=== PATIENT | female | born 1975 | race Caucasian/White ===

== ENCOUNTER 2016-10-22 22:00 | Inpatient (IN) | payer OTHER ==
[~2016-10-22] VITALS: Ht 162.6 cm; Wt 58.5 kg
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
--- NOTE | ~2016-10-22 | PN ---
Unit #: [id number] #: [id number] Patient: PARTH EL [id number] [facility] [address] [place] [address] [id number] MR#: [id number] NAME: PARTH EL ROOM: P252 Age: 41 Sex: F Admission Date: 10/23/2016 : 1975 Attending Physician: Jeremy Davis M.D. Admitting Physician: Jeremy Davis M.D. Primary Care Physician: Primary Care Physician Sonia CORTEZ PROGRESS NOTES DATE OF SERVICE 10/24/2016 DISCUSSION Ms. Silva is a 41-year-old female seen on 10/24/2016. Patient interviewed, chart reviewed, I obtained information from nursing staff. Patient's affect is brighter. Patient reports feeling better, reports that she will not go back to her and would like to go to a different place. Patient's UA showed leukocyte esterase positive, WBC bacteria. Patient reported that she has a history of UTI, has one kidney. COMPLETE REVIEW OF SYSTEMS Unremarkable. MENTAL STATUS EXAMINATION GENERAL APPEARANCE: Patient dressed casually. ATTENTION SPAN AND CONCENTRATION: Fair. Oriented in time, place and person. MOOD AND AFFECT: Sad, dysphoric. SPEECH: Monotone. THOUGHT PROCESS: [place]. Patient denied any thoughts of harming self or others. RECENT AND REMOTE MEMORY: Poor. INSIGHT AND JUDGMENT: Poor. DIAGNOSIS Major depressive disorder, recurrent, severe ASSESSMENT/PLAN Advised to continue with current medication with the plan to consider discharge this week, and also ordered medical consultation for treatment for UTI. Dictated by... Emerita Swann/ritesh TD: 10/25/2016 04:12 Unit #: [id number] #: [id number] Patient: PARTH EL JOB #: [id number] [facility] PROGRESS NOTES Page 1 of 1 X Jeremy Davis MD PROGRESS NOTE
--- NOTE | ~2016-10-22 | DS ---
Unit #: [id number] #: [id number] Patient: PARTH EL [id number] [facility] [address] [place] [address] [id number] I MR#: [id number] NAME: PARTH EL ROOM: [facility] Age: 41 Sex: F Admission Date: 10/23/2016 : 1975 Discharge Date: 10/25/2016 Attending Physician: Jeremy Davis M.D. Primary Care Physician: Primary Care Physician No DISCHARGE SUMMARY REASON FOR ADMISSION Depression. DIAGNOSTIC STUDIES Laboratory data unremarkable. HOSPITAL COURSE The patient was admitted to inpatient unit on October 23, 2016 and discharged on October 25, 2016. The patient was treated on the inpatient unit with expressive therapy, medication management, pastoral care, psychoeducation, psychotherapy. The patient was treated with Vistaril, Zyprexa, Prozac, Desyrel. The patient showed improvement, subsequently was discharged with the plan to follow up in outpatient program. DISCHARGE DIAGNOSES [place] I Major depressive disorder, recurrent, severe, F33.2. Posttraumatic stress disorder, chronic, F43.1. [place] II Deferred. [place] III None. [place] IV Psychosocial stressor. 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 DISCHARGE MEDICATIONS 1. Vistaril 25 mg three times a day for anxiety 2. Zyprexa 5 mg at bedtime for mood stabilization 3. Prozac 20 mg daily for depression 4. Desyrel 50 mg at bedtime for sleep CONDITION AT DISCHARGE The patient is pleasant and cooperative, denied any psychotic symptoms or any suicidal ideation. PROGNOSIS Guarded. DIET AND ACTIVITY As tolerated. Unit #: [id number] #: [id number] Patient: PARTH EL Dictated by... Emerita Swann/kristen TD: 10/26/2016 05:19 JOB #: [id number] DISCHARGE SUMMARY Page 1 of 1 X Jeremy Davis MD X DISCHARGE SUMMARY
--- NOTE | ~2016-10-22 | HP ---
Unit #: [id number] #: [id number] Patient: PARTH EL [id number] [place] [address] [id number] I MR#: [id number] NAME: PARTH EL ROOM: P252 Age: 41 Sex: F Admission Date: 10/23/2016 : 1975 Attending Physician: Jeremy Davis M.D. Admitting Physician: Jeremy Davis M.D. Primary Care Physician: Primary Care Physician No HISTORY AND PHYSICAL HISTORY OF PRESENT ILLNESS Parth is a 41 year old admitted to [address] [place] [address] with depression and verbalizing wanting to hurt herself. PAST MEDICAL HISTORY Nothing significant. PAST SURGICAL HISTORY x1. ALLERGIES No known drug allergies. SOCIAL HISTORY Smokes one pack per day. Denies alcohol admits to using marijuana on a daily basis. FAMILY HISTORY Medically noncontributory. REVIEW OF SYSTEMS CONSTITUTIONAL: No fever or chills. HEENT: Denies any sore throat, ear pain or runny nose. CARDIOVASCULAR: Denies chest pain, irregular heart rhythm or palpitations. CHEST: Denies shortness of breath or cough. No hemoptysis. GASTROINTESTINAL: Denies nausea, vomiting, diarrhea or chronic constipation. ENDOCRINE: Denies history of increased thirst or urination. No recent significant weight loss or gain. GENITOURINARY: Denies dysuria, frequency, or hematuria. SKIN: Denies any rashes. HEMATOLOGIC: Denies history of increased bleeding or bruising. MUSCULOSKELETAL: Denies any hot, swollen joints. No generalized muscle pain. NEUROLOGIC: Denies problems with vision or speech. No frequent, severe headaches. No numbness, tingling or weakness in any extremities. Denies loss of bladder or bowel control. CURRENT MEDICATIONS 1. Prozac 20 mg q.h.s. 2. Zyprexa 5 mg q.h.s. 3. Vistaril 25 mg t.i.d. Unit #: [id number] #: [id number] Patient: PARTH EL 4. Desyrel p.r.n. 5. Nicotine patch 14 mg q day 6. Milk of Magnesia p.r.n. 7. Maalox p.r.n. 8. Tylenol p.r.n. 9. Methocarbamol 500 mg t.i.d. p.r.n. PHYSICAL EXAMINATION GENERAL: Alert, thin, in no apparent distress. VITAL SIGNS: Blood pressure 126/74, heart rate 72, respirations 16, temperature 98.6. WEIGHT: 129 pounds. HEIGHT: 5'4". SKIN: Warm and dry without rash or lesion. She has a significant bruise across her buttock and upper thigh. There is a small area where the skin is broken. There is no increased redness, swelling, heat or pus noted. HEENT: Normocephalic. TMs not viewed. Oral and nasal passages clear. Conjunctivae clear. Pupils equal, round and reactive to light and accommodation. Extraocular movements intact. NECK: Supple without lymphadenopathy or thyromegaly. HEART: Regular rate and rhythm without murmur. LUNGS: Clear. ABDOMEN: Soft, nontender. : Not done. EXTREMITIES: No evidence of cyanosis, clubbing or edema. Moves all extremities without focal deficit. NEUROLOGICAL: Grossly within normal limits. Cranial Nerves: II: Visual forte are intact. III, IV AND : Extraocular movements are intact. Pupils are equal, round and reactive to light. V: Facial sensation is grossly normal. VII: Facial movements and expression are normal. VIII: Auditory acuity grossly intact. IX, X: Uvula is midline. Phonation is normal. XI: Patient shrugs shoulders and turns head normally. XII: Tongue protrudes in the midline. Sensory and Motor Function: Sensory and motor sensation is grossly normal. Motor: moves all extremities well. Coordination: Gait is normal. Deep Tendon Reflexes: Intact. IMPRESSION Psychiatric admission RECOMMENDATIONS PSYCHIATRIC: Per psychiatrist. MEDICAL: I see no contraindications to participating in facility's activities. MEDICAL PROGNOSIS Good. MEDICAL CONDITION Stable. Dictated by... Unit #: [id number] #: [id number] Patient: PARTH EL Hali Bradley P.A.-C. for Emerita Walker/micahel TD: 10/23/2016 20:57 JOB #: [id number] HISTORY AND PHYSICAL Page 1 of 1 X Hali Bradley HISTORY AND PHYSICAL
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
[2016-10-23 09:42] LABS: BASOPHIL# 0.1 X10e3 (0-0.3); BASOPHIL% 0.8 % (0-2.5); EOSINOPHIL# 0.2 X10e3 (0-0.7); EOSINOPHIL% 3.1 % (0.0-7.0); HEMATOCRIT 39.5 % (35.0-45.0); HEMOGLOBIN 13.6 gm/dL (12.0-16.0); LYMPHOCYTE# 2.4 X10e3 (1.0-3.5); LYMPHOCYTE% 32.4 % (17.0-45.0); MEAN CELL VOLUME 91.7 FL (83-96); MEAN CORPUSCULAR HEMOGLOBIN 31.5 PG (28-34); MEAN CORPUSCULAR HGB CONC 34.4 g/dL (30-36); MEAN PLATELET VOLUME 7.3 FL (6.5-11.5); MONOCYTE# 0.6 X10e3 (0-1.0); MONOCYTE% 8.1 % (3.0-12.0); NEUTROPHIL# 4.1 X10e3 (1.5-7.1); NEUTROPHIL% 55.6 % (40-75); PLATELET COUNT 274 X10e3 (140-420); RED CELL DISTRIBUTION WIDTH 13.1 % (11.0-15.5); WHITE BLOOD COUNT 7.4 X10e3 (4.0-10.5)
[2016-10-23 09:43] LABS: DIFF IND NO
[2016-10-23 09:49] LABS: URINE APPEARANCE TURBID; URINE BILIRUBIN NEG (NEG); URINE BLOOD NEG (NEG); URINE COLOR YELLOW; URINE GLUCOSE NEG (NEG); URINE KETONE TRACE (NEG); URINE LEUKOCYTE ESTERASE TRACE (NEG); URINE NITRATE NEG (NEG); URINE PROTEIN NEG (NEG); URINE SPECIFIC GRAVITY 1.024 (1.003-1.035); URINE UROBILINOGEN 0.2 MG/DL (NEG)
[2016-10-23 09:54] LABS: URINE BACTERIA AUWI 1+ (NEGATIVE); URINE SQUAMOUS EPITHELIAL CELL OCC /[HPF]
[2016-10-23 10:12] LABS: BILIRUBIN,TOTAL 0.4 mg/dL (0.2-2.0); BUN/CREATININE RATIO 18.75; CALCIUM SERUM 9.3 mg/dL (8.4-10.2); CREATININE SERUM 0.8 mg/dL (0.6-1.4); GLOM FILT RATE Estimated 92.3 mL/min (>60); POTASSIUM 4.2 mmol/L (3.5-5.1); PROTEIN TOTAL SERUM 6.5 g/dL (6.0-8.3)
[2016-10-23 10:24] LABS: AMPHETAMINE NEG (NEG); BARBITURATES NEG (NEG); BENZODIAZEPINES POS (NEG); COCAINE NEG (NEG); MARIJUANA NEG (NEG); OPIATES NEG (NEG); TRICYCLIC ANTIDEPRESSANTS NEG (NEG); U METHADONE NEG (NEG)
== END 2016-10-25 11:00 | DRG 885 ==
LOC: P2L 10-23 01:56
PROVIDERS: Psychiatry & Neurology Psychiatry
DX: F33.2 Major depressive disorder, recurrent severe without psychotic features (principal); F17.210 Nicotine dependence, cigarettes, uncomplicated; F43.12 Post-traumatic stress disorder, chronic
CPT/HCPCS: 80053; 80307; 81003; 84703; 85025